=== PATIENT | male | born 1975 | race Caucasian/White ===

== ENCOUNTER → 2020-11-28 | Outpatient (CLI) | payer BC, OTHER ==
[~2020-11-28] VITALS: Ht 193 cm; Wt 97.7 kg
[~2020-11-28] MED LIST: FLEXERIL PO; NORCO 5-325 TA1 EACH PO
[2020-11-28 10:04] LABS: HEMOGLOBIN 18.4 gm/dL (14.0-18.0); MCH 28.7 pg (26.0-34.0); MCHC 34.1 g/dL (28.0-37.0); MCV 84.1 fL (80.0-100.0); RBC 6.42 mil/uL (4.50-6.00); RDW 13.9 % (10.5-14.5); WBC 8.3 thou/uL (4.0-11.0)
[2020-11-28 10:16] LABS: INR 1.1; PROTIME 11.9 Seconds (10.5-12.1)
[2020-11-28 10:35] VITALS: BP 141/97
== END | disposition home or self-care (01) ==
LOC: CAT 08:44
PROVIDERS: ATTEND Pediatrics
DX: R91.1 Solitary pulmonary nodule (principal); J93.9 Pneumothorax, unspecified; Z79.891 Long term (current) use of opiate analgesic